=== PATIENT | female | born 1965 | race Hispanic/Latino ===

== ENCOUNTER 2021-06-16 21:36 | Emergency (ER) | payer OTHER ==
[~2021-06-16] VITALS: Ht 165.1 cm; Wt 96.6 kg
[2021-06-16 22:21] LABS: BASOPHILS % 0.4 % (0.0-1.0); EOSINOPHILS # (AUTO) 0.2 (0.0-0.4); EOSINOPHILS % 2.1 % (0.0-6.0); HEMATOCRIT 39.7 % (34.2-44.1); HEMOGLOBIN 13.1 g/dL (12.0-16.0); LYMPHOCYTES # (AUTO) 3.2 (1.0-3.2); LYMPHOCYTES % 31.7 % (18.0-39.1); MEAN CORPUSCULAR HEMOGLOBIN 29.6 pg (28-32); MEAN CORPUSCULAR VOLUME 89.8 fL (81-99); MONOCYTES # (AUTO) 0.7 (0.2-0.8); MONOCYTES % 7.2 % (4.4-11.3); NEUTROPHILS # (AUTO) 5.8 (2.1-6.9); NEUTROPHILS % 58.3 % (38.7-80.0); PLATELET COUNT 274 x10e3/uL (140-360); RED BLOOD COUNT 4.42 x10e6/uL (3.6-5.1); RED CELL DISTRIBUTION WIDTH 13.1 % (11.7-14.4)
[2021-06-16 22:30] LABS: INR 0.91; PROTHROMBIN TIME 12.4 seconds (11.9-14.5)
[2021-06-16 22:31] LABS: PARTIAL THROMBOPLASTIN TIME 27.6 seconds (23.8-35.5)
[2021-06-16 22:37] LABS: ANION GAP 12.9 mmol/L (8-16); CALCIUM 9.2 mg/dL (8.4-10.2); CREATININE, SERUM 0.8 mg/dL (0.57-1.11); POTASSIUM 3.9 mmol/L (3.5-5.1)
== END 2021-06-17 00:29 | disposition home or self-care (01) ==
LOC: ER 22:10
DX: R04.0 Epistaxis (principal)
CPT/HCPCS: 36415; 80048; 85025; 85610; 85730; 99283